=== PATIENT | male | born 1985 | race Two or more races ===

== ENCOUNTER 2023-12-06 15:02 | Emergency (ER) | payer OTHER ==
[2023-12-06 15:13] VITALS: BP 110/70; PULSE 89; RESP 20; TEMP 97.8; BMI 26.6
[2023-12-06] MEDS ORDERED: IBUPROFEN 600 MG TABLET (FP) PO ONE (15:56)
[2023-12-06] MEDS ORDERED: LORATADINE 10 MG TABLET ONE (15:57)
[2023-12-06] MEDS ORDERED: AMOX TR/POT CLAV 875MG/125MG TABLETS (FP) ONE (15:57)
[2023-12-06] MEDS: IBUPROFEN 600 MG TABLET (FP) PO ONE (16:00)
[2023-12-06] MEDS: AMOX TR/POT CLAV 875MG/125MG TABLETS (FP) PO ONE (16:00)
[2023-12-06] MEDS: LORATADINE 10 MG TABLET PO ONE (16:00)
== END 2023-12-06 17:01 | disposition home or self-care (01) ==
LOC: JER 15:02 → JERFT 15:02 → JER 17:01
DX: H66.91 Otitis media, unspecified, right ear (principal); R59.0 Localized enlarged lymph nodes; H92.01 Otalgia, right ear
CPT/HCPCS: 99283-25